=== PATIENT | female | born 1995 | race Caucasian/White ===

== ENCOUNTER → 2017-01-26 | Day surgery (SDC) | payer BC, OTHER ==
[~2017-01-26] VITALS: Ht 160 cm; Wt 61.0 kg
[~2017-01-26] MED LIST: COSYNTROPIN INJ 0.25 MCG in SYRINGE 4 ML IV SCH; PATIENT'S ALLERGY INFO NEEDS ENTERED SCH
[2017-01-26 07:53] VITALS: BP 110/59; PULSE 51; TEMP 36; O2SAT 100; Ht 160 cm; Wt 61.0 kg
[2017-02-05 12:50] LABS: REFERENCE QUEST TEST REPORT
[2017-02-05 12:50] LABS: REFERENCE QUEST TEST REPORT
[2017-02-05 12:50] LABS: REFERENCE QUEST TEST REPORT
== END | disposition home or self-care (01) ==
LOC: C.MTU 07:40
PROVIDERS: ATTEND Internal Medicine Endocrinology, Diabetes & Metabolism
DX: N64.3 Galactorrhea not associated with childbirth (principal)